=== PATIENT | male | born 1990 | race Caucasian/White ===

== ENCOUNTER 2018-08-24 12:42 | Emergency (ER) | payer OTHER ==
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
[2018-08-24 19:03] VITALS: BP 118/70
== END 2018-08-24 14:18 | disposition home or self-care (01) ==
LOC: CED 12:42
PROC: 2W3FX1Z Immobilization of Left Hand using Splint (ICD-10-PCS; principal; 2018-08-24)
DX: S62.305A Unspecified fracture of fourth metacarpal bone, left hand, initial encounter for closed fracture (principal); W22.8XXA Striking against or struck by other objects, initial encounter; X50.1XXA Overexertion from prolonged static or awkward postures, initial encounter; Y99.0 Civilian activity done for income or pay; Z87.891 Personal history of nicotine dependence
CPT/HCPCS: 73140-PO; 99284-ER

== ENCOUNTER → 2018-09-25 | Outpatient (CLI) | payer OTHER | LOC: BMCIMAGING 09:47 | PROVIDERS: ATTEND Orthopaedic Surgery | DX: S62.395D Other fracture of fourth metacarpal bone, left hand, subsequent encounter for fracture with routine healing (principal) ==

== ENCOUNTER → 2018-10-23 | Outpatient (CLI) | payer OTHER | LOC: BMCIMAGING 10:35 ==